=== PATIENT | female | born 1950 | race Caucasian/White ===

== ENCOUNTER 2021-09-21 11:23 | Emergency (ER) | payer MEDICAID, MEDICARE, OTHER ==
[~2021-09-21] VITALS: Ht 167.6 cm; Wt 72.0 kg
[2021-09-21 11:29] VITALS: BP 154/58
[2021-09-21] MEDS ORDERED: AMOX875T2 PO (13:46)
== END 2021-09-21 14:07 | disposition home or self-care (01) ==
LOC: ER 11:24
DX: H61.23 Impacted cerumen, bilateral (principal); H66.92 Otitis media, unspecified, left ear; E78.00 Pure hypercholesterolemia, unspecified; Z79.899 Other long term (current) drug therapy
CPT/HCPCS: 69209; 99283